=== PATIENT | female | born 1985 | race Two or more races ===

== ENCOUNTER 2019-10-29 18:23 | Emergency (ER) | payer MEDICAID ==
[~2019-10-29] VITALS: Ht 157.5 cm; Wt 47.2 kg
[~2019-10-29 18:23] MED LIST: LEXAPRO10 MG ORAL; NITROFURANTOIN100 M2 ORAL; TRAMADOL HCL50 MG ORAL; ZOFRAN ODT4 MG ORAL
--- NOTE | 2019-10-29 18:45 | NUR ---
ED Nurse Note: pt ambulated to ED d/t "severe anxiety and depression x 3 days". afebrile on triage 98.7F, denies any cough nor sob. Pt is AOx4, cooperative; VSS, on RA. Placed on bed. will continue to monitor.
[2019-10-29 18:47] VITALS: BP 112/73
[2019-10-29] MEDS ORDERED: LORazepam 1mg tab ORAL ONE (19:00)
--- NOTE | 2019-10-29 19:09 | NUR ---
ED Nurse Note: Hand off given to Tammie LAZAR for continuity of care.
--- NOTE | 2019-10-29 19:09 | NUR ---
ED Nurse Note: Received report from CADY Andrews. Patient resting in bed, no acute distress noted.
--- NOTE | 2019-10-29 19:26 | Emergency Room Report ---
History of Present Illness General Chief Complaint: Behavioral Complaint Present Illness HPI 34-year-old female with history of anxiety and psychotic disorder here complaining of increased anxiety x3 days. Patient reports that she started taking olanzapine 15 mg but was started on over a month ago by her psychiatrist however feels like it stopped working. Patient contacted her psychiatrist and was told to come to the emergency room. Patient denies any suicidal or homicidal ideation and is interested in voluntary checking into mental health facilities. Patient denies any delusions or hallucinations at this time. Denies any drug use and reports that she has not smoked marijuana in over a month. However there is marijuana in her system. Denies other drug use, tobacco use smoke, alcohol intake. Denies chest pain, shortness of breath, palpitation, headache and dizziness. Denies fever and chills, abdominal pain, nausea vomiting diarrhea. Has not taken any other medication for symptom relief. Has been taking olanzapine every day. Allergies: Coded Allergies: ACETAMINOPHEN (Verified Allergy, Intermediate, 07/17/19) Patient History Past Medical History: see triage record Past Surgical History: none Family History: none Last Menstrual Period: 10/29/19 Now: No Immunizations: UTD Reviewed Nursing Documentation: PMH: Agreed; PSxH: Agreed Nursing Documentation-PMH Past Medical History: No History, Except For History Of Psychiatric Problem: Yes - anxiety, depression Hx Seizures: Yes Review of Systems All Other Systems: negative except mentioned in HPI Physical Exam Vital Signs Date Time Temp Pulse Resp B/P (MAP) Pulse Ox O2 Delivery O2 Flow Rate FiO2 10/29/19 18:36 98.8 96 20 112/73 (86) 95 Room Air Sp02 EP Interpretation: reviewed, normal General Appearance: alert/responsive, no apparent distress, GCS 15, non-toxic Head: atraumatic Eyes: PERRL, lids + conjunctiva normal ENT: hearing intact, no angioedema Neck: supple/symm/no masses, no meningismus Respiratory: effort normal, no wheezing, chest symmetrical Cardiovascular: regular rate, rhythm, no edema Gastrointestinal: non-tender, no mass, non-distended, no rebound/guarding, normal bowel sounds Musculoskeletal: gait & station normal, normal ROM, strength & tone normal, non -tender Neurologic: oriented x3, sensory intact, normal speech Psychiatric: no suicidal/homicidal ideation, anxious Skin: normal inspection, no rash Lymphatic: normal inspection Medical Decision Making PA Attestation All my diagnosis and treatment plans were reviewed ad discussed with my supervising physician Dr. Sher Diagnostic Impression: Primary Impression: Anxiety ER Course 34-year-old female with history of anxiety and psychotic disorder here complaining of increased anxiety x3 days. Patient reports that she started taking olanzapine 15 mg but was started on over a month ago by her psychiatrist however feels like it stopped working. Patient contacted her psychiatrist and was told to come to the emergency room. Patient denies any suicidal or homicidal ideation and is interested in voluntary checking into mental health facilities. Patient denies any delusions or hallucinations at this time. Denies any drug use and reports that she has not smoked marijuana in over a month. However there is marijuana in her system. Denies other drug use, tobacco use smoke, alcohol intake. Denies chest pain, shortness of breath, palpitation, headache and dizziness. Denies fever and chills, abdominal pain, nausea vomiting diarrhea. Has not taken any other medication for symptom relief. Has been taking olanzapine every day. Ddx considered but are not limited to: generalized anxiety disorder, panic attack, depression with psychotic feature, bipolar disorder, drug overdose Vital signs: are WNL, pt. is afebrile H&PE are most consistent with: Anxiety ORDERS: Urine test, tox screen, 3-day supply of bedtime only Ativan p.o. ED INTERVENTIONS: Ativan p.o. DISCHARGE: At this time pt. is stable for d/c to home. Will provide printed patient care instructions, and any necessary prescriptions. Care plan and follow up instructions have been discussed with the patient prior to discharge. Follow-up with your psychiatrist regarding the dosing of your olanzapine, also check with them before start of Ativan at home. Try to take it at night as needed. We cannot refill this medication as it is a controlled substance and to be refilled and dressed by your psychiatrist or primary care provider. If worsening symptoms at emergency room. Avoid marijuana use Last Vital Signs Date Time Temp Pulse Resp B/P (MAP) Pulse Ox O2 Delivery O2 Flow Rate FiO2 10/29/19 18:47 96 20 Room Air 10/29/19 18:47 98.8 112/73 95 Disposition: HOME, SELF-CARE Condition: Stable Scripts Lorazepam* (ATIVAN*) 1 Mg Tablet 1 MG ORAL BEDTIME for 3 Days, #3 TAB Prov: Gale Harris 10/29/19 Referrals: NON PHYSICIAN (PCP) Patient Instructions: Generalized Anxiety Disorder Additional Instructions: Follow-up with your psychiatrist regarding the dosing of your olanzapine, also check with them before start of Ativan at home. Try to take it at night as needed. We cannot refill this medication as it is a controlled substance and to be refilled and dressed by your psychiatrist or primary care provider. If worsening symptoms at emergency room. Avoid marijuana use Gale Harris Oct 29, 2019 19:26
[2019-10-29] MEDS ORDERED: ATIVAN1 MG ORAL (19:27)
[2019-10-29 19:28] VITALS: BP 122/78
[2019-10-29 19:32] VITALS: BP 118/75
--- NOTE | 2019-10-29 19:32 | NUR ---
ER DISCHARGE NOTE: Patient is cleared to be discharged per ERMD, pt is aox4, on room air, with stable vital signs. pt was given dc and prescription instructions, pt was able to verbalize understanding, pt id band removed. pt is able to ambulate with steady gait. pt took all belongings. pt stable upon discharge.
== END 2019-10-29 19:32 | disposition home or self-care (01) ==
LOC: EMR 18:48
DX: F41.9 Anxiety disorder, unspecified (principal); Z88.6 Allergy status to analgesic agent; F32.9 Major depressive disorder, single episode, unspecified; G40.909 Epilepsy, unspecified, not intractable, without status epilepticus
CPT/HCPCS: 80307; 81025; Z7502; 99283